=== PATIENT | female | born 1980 | race Caucasian/White ===

== ENCOUNTER 2025-01-12 16:23 | Emergency (ER) | payer MEDICAID, OTHER | END 2025-01-12 17:42 | disposition home or self-care (01) | LOC: FB.ED 16:23 | DX: S09.90XA Unspecified injury of head, initial encounter (principal); Z88.0 Allergy status to penicillin; Z88.1 Allergy status to other antibiotic agents; Z91.040 Latex allergy status; Z91.018 Allergy to other foods; W20.8XXA Other cause of strike by thrown, projected or falling object, initial encounter; Y93.89 Activity, other specified | CPT/HCPCS: 70450; 99283 ==

== ENCOUNTER 2025-06-13 13:07 | Emergency (ER) | payer BC ==
[2025-06-13] MEDS: Ketorolac 30 MG/ML SDV IM ONE (13:46)
== END 2025-06-13 14:16 | disposition home or self-care (01) ==
LOC: FB.ED 13:07
DX: M54.50 Low back pain, unspecified (principal); G89.29 Other chronic pain; Z88.0 Allergy status to penicillin; Z91.040 Latex allergy status; Z91.018 Allergy to other foods; Z88.1 Allergy status to other antibiotic agents; Z88.8 Allergy status to other drugs, medicaments and biological substances; Z79.899 Other long term (current) drug therapy
CPT/HCPCS: 96372; 99283; A9270; J1885